=== PATIENT | female | born 1965 | race Caucasian/White ===

== ENCOUNTER → 2017-01-31 | Outpatient (CLI) | payer OTHER | LOC: FIMAGING 09:27 | PROVIDERS: ATTEND Family Medicine | DX: Z12.31 Encounter for screening mammogram for malignant neoplasm of breast (principal) | CPT/HCPCS: G0202 ==

== ENCOUNTER → 2018-02-13 | Outpatient (CLI) | payer OTHER | LOC: FIMAGING 08:49 | PROVIDERS: ATTEND Family Medicine | DX: Z12.31 Encounter for screening mammogram for malignant neoplasm of breast (principal) ==

== ENCOUNTER 2018-07-05 04:40 | Emergency (ER) | payer OTHER ==
--- NOTE | 2018-07-05 05:01 | EDPHY ---
H & P Stated Complaint: l chst pain Time Seen by Provider: 07/05/18 04:47 HPI/ROS: Chief Complaint: Chest pain, shoulder pain HPI: 52-year-old woman had some brief episodes of central chest discomfort before going to bed 6 hr ago. It is described as tightness in her central chest , 4/10. Lasted a few seconds each. She then woke this morning at about 3 with some aching in her left shoulder. She did not have any further chest pain. Pain was nonradiating. Not worsened with movement. No shortness of breath. Pain is not pleuritic. No fevers or chills. No cough. No nausea or vomiting. Shoulder aching about a 2/10. She did take an adult aspirin. She is unable to get comfortable so decided to present for further evaluation. Does not have a history of similar episodes in the past. No family history of coronary artery disease or sudden cardiac at a young age. ROS: 10 systems were reviewed and were negative except those elements noted in the HPI. PMH: VSD Social History: No smoking, occasional alcohol, no recreational drug use Family History: non-contributory Physical Exam: Gen: Awake, Alert, No Distress HEENT: Nose: no rhinorrhea Eyes: PERRLA, EOMI Mouth: Moist mucosa Neck: Supple, no JVD Chest: nontender, lungs clear to auscultation Heart: S1, S2 normal, 2/6 murmur at the left Heart base Abd: Soft, non-tender, no guarding Back: no CVA tenderness, no midline tenderness Ext: no edema, non-tender Skin: no rash Neuro: CN II-XII intact, Sensation grossly intact, Strength 5/5 in bilateral upper and lower extremities - Personal History LMP (Females 10-55): IUD In Place Current Tetanus/Diphtheria Vaccine: Unsure Current Tetanus Diphtheria and Acellular Pertussis (TDAP): Unsure - Medical/Surgical History Hx Asthma: No Hx Chronic Respiratory Disease: No Hx Diabetes: No Hx Cardiac Disease: No Hx Renal Disease: No Hx Cirrhosis: No Hx Alcoholism: No Hx HIV/AIDS: No Hx Splenectomy or Spleen Trauma: No - Social History Smoking Status: Never smoked Constitutional: Initial Vital Signs Heart Rate 103 H 07/05/18 04:42 Respiratory Rate 18 07/05/18 04:42 Blood Pressure 134/69 H 07/05/18 04:42 O2 Sat (%) 96 07/05/18 04:42 O2 Delivery Mode Room Air Allergies/Adverse Reactions: No Known Allergies Allergy (Unverified 06/12/09 13:45) Home Medications: Medication Instructions Recorded NK [No Known Home Meds] 07/05/18 Medical Decision Making - Diagnostics EKG Interpretation: ECG time 4:51 a.m., sinus rhythm with a rate in 99, right axis deviated diez, otherwise normal ECG. ED Course/Re-evaluation: A 52-year-old woman with no risk factors for coronary disease had an episode of some brief chest discomfort several hours ago with some left shoulder discomfort. ECG is unremarkable. Troponin is 0. No risk factors for PE. Negative perc score. She is not tachycardic in the department. Symptoms have resolved. She has been reassured. Plan will be for discharge with follow-up with primary care physician as an outpatient, return for any concerns. - Data Points Laboratory Results: Laboratory Results 07/05/18 04:55 07/05/18 04:55 07/05/18 07/05/18 07/05/18 04:59 04:55 04:55 WBC 8.82 10^3/uL 10^3/uL (3.80-9.50) RBC 4.62 10^6/uL 10^6/uL (4.18-5.33) Hgb 14.3 g/dL g/dL (12.6-16.3) Hct 42.6 % % (38.0-47.0) MCV 92.2 fL fL (81.5-99.8) MCH 31.0 pg pg (27.9-34.1) MCHC 33.6 g/dL g/dL (32.4-36.7) RDW 12.5 % % (11.5-15.2) Plt Count 166 10^3/uL 10^3/uL (150-400) MPV 10.0 fL fL (8.7-11.7) Neut % (Auto) 57.6 % % (39.3-74.2) Lymph % (Auto) 33.2 % % (15.0-45.0) Alcorn % (Auto) 6.1 % % (4.5-13.0) Eos % (Auto) 2.5 % % (0.6-7.6) Baso % (Auto) 0.5 % % (0.3-1.7) Nucleat RBC Rel Count 0.0 % % (0.0-0.2) Absolute Neuts (auto) 5.08 10^3/uL 10^3/uL (1.70-6.50) Absolute Lymphs (auto) 2.93 10^3/uL 10^3/uL (1.00-3.00) Absolute Monos (auto) 0.54 10^3/uL 10^3/uL (0.30-0.80) Absolute Eos (auto) 0.22 10^3/uL 10^3/uL (0.03-0.40) Absolute Basos (auto) 0.04 10^3/uL 10^3/uL (0.02-0.10) Absolute Nucleated RBC 0.00 10^3/uL 10^3/uL (0-0.01) Immature Gran % 0.1 % % (0.0-1.1) Immature Gran # 0.01 10^3/uL 10^3/uL (0.00-0.10) Sodium 142 mEq/L mEq/L (135-145) Potassium 4.1 mEq/L mEq/L (3.5-5.2) Chloride 108 mEq/L mEq/L (97-110) Carbon Dioxide 24 mEq/l mEq/l (22-31) Anion Gap 10 mEq/L mEq/L (6-14) BUN 28 mg/dL H mg/dL (7-23) Creatinine 1.1 mg/dL H mg/dL (0.6-1.0) Estimated GFR 52 Glucose 103 mg/dL H mg/dL (70-100) Calcium 9.5 mg/dL mg/dL (8.5-10.4) POC Troponin I 0.00 ng/mL ng/mL (0.00-0.08) Point of Care Test Results: Chemistry 07/05/18 04:59 POC Troponin I 0.00 ng/mL ng/mL (0.00-0.08) Departure - Departure Disposition: Home, Routine, Self-Care Clinical Impression: Atypical chest pain Condition: Good Instructions: Chest Pain (ED) Additional Instructions: Follow up with primary care physician in 2-3 days for recheck. Return to the emergency department for chest pain, shortness of breath, lightheadedness, fainting, palpitations, or any other concerns. Referrals: Addis Pierce MD [Primary Care Provider] - As per Instructions
[2018-07-05 05:04] LABS: PLATELET COUNT 166 10^3/uL (150-400)
[2018-07-05 05:52] VITALS: BP 119/72
--- NOTE | 2018-07-05 06:15 | CPEKG ---
Test Reason : OPEN Blood Pressure : / mmHG Vent. Rate : 099 BPM Atrial Rate : 100 BPM P-R Int : 139 ms QRS Dur : 076 ms QT Int : 343 ms P-R-T Axes : 082 183 038 degrees QTc Int : 441 ms Sinus rhythm Right axis deviation Confirmed by Benny Go ([id number]) on 07/05/2018 6:14:47 AM Referred By: Confirmed By:Benny Go
== END 2018-07-05 05:52 | disposition home or self-care (01) ==
DX: R07.9 Chest pain, unspecified (principal); M25.512 Pain in left shoulder; I25.10 Atherosclerotic heart disease of native coronary artery without angina pectoris
CPT/HCPCS: 84484-ER